=== PATIENT | male | born 1990 | race Caucasian/White ===

== ENCOUNTER 2022-07-15 04:59 | Emergency (ER) | payer OTHER, SELFPAY ==
--- NOTE | 2022-07-15 | ECG_ITS ---
Test Reason : rhythm change Blood Pressure : / mmHG Vent. Rate : 062 BPM Atrial Rate : 062 BPM P-R Int : 184 ms QRS Dur : 114 ms QT Int : 424 ms P-R-T Axes : 024 -24 037 degrees QTc Int : 430 ms Normal sinus rhythm Possible Left atrial enlargement Borderline ECG When compared with ECG of 15-JUL-2022 05:02, Sinus rhythm has replaced Atrial fibrillation Vent. rate has decreased BY 75 BPM QRS duration has increased ST no longer depressed in Anterior leads Referred By: Abel Escalona Electronically Signed By:ANGELLA CALLAHAN MD
--- NOTE | 2022-07-15 05:03 | ECG_ITS ---
Test Reason : PALPATATIONS Blood Pressure : / mmHG Vent. Rate : 137 BPM Atrial Rate : 000 BPM P-R Int : 000 ms QRS Dur : 096 ms QT Int : 284 ms P-R-T Axes : 000 -23 035 degrees QTc Int : 428 ms Atrial fibrillation with rapid ventricular response Nonspecific ST abnormality Abnormal ECG No previous ECGs available Referred By: Generic ED Physician Electronically Signed By:ANGELLA CALLAHAN MD
[2022-07-15 05:04] VITALS: BP 114/73; PULSE 140; RESP 16; O2SAT 97; BMI 40.3
--- NOTE | 2022-07-15 05:10 | ED_ITS ---
HPI - Arrhythmia/Palpitations General Chief Complaint: Arrhythmia/Palpitations Stated Complaint: Afib Time Seen by Provider: 07/15/22 05:09 Source: patient Mode of arrival: ambulatory Limitations: no limitations History of Present Illness HPI narrative: Patient is still on fibrillation had episode in October when has to get cardioversion converted to normal sinus rhythm since then patient been in sinus rhythm patient woke up just prior to arrival at 03:00 with palpitation episode similar to that in October felt dizzy and weak heart rate was 140 beats per minute on arrival patient was in AFib with ventricular rate 137 Related Data Allergies Allergy/AdvReac Type Severity Reaction Status Date / Time amoxicillin Allergy Unknown Verified 07/15/22 05:03 Review of Systems Review of Systems: Yes all other systems are reviewed and are negative [facility] Social History Social History Alcohol intake: never Smoked in Last 30 Days: No Use of substances other than those prescribed or required for medical reasons: No Advance Directives: No Advance Directives Information Provided: Yes Physical Exam Vital Signs: Vital Signs: Last Vital Signs Pulse 140 H 07/15/22 05:04 Resp 16 07/15/22 05:04 BP 114/73 07/15/22 05:04 Pulse Ox 97 07/15/22 05:04 O2 Del Method Room Air 07/15/22 05:04 BMI result Body Mass Index 40.3 Appearance: Alert. Oriented X3. No acute distress obese. ENT: Pharynx normal. Oral Mucosa moist Neck: Normal inspection. Neck supple. CVS: Irregularly irregular tachycardia no murmur rub or gallop. Pulses normal. Respiratory: No respiratory distress. Equal air entry bilateral, no wheezing/rales/rhonchi Abdomen: Soft and nontender. Bowel sounds are present, no mass palpable, Skin: Skin warm and dry. Normal skin color. Normal skin turgor. Extremities: No lower extremity edema. No calf tenderness Neuro: Oriented X 3. No motor deficit. Medications Administered Discontinued Medications Generic Name Dose Route Start Last Admin Trade Name Freq PRN Reason Stop Dose Admin Diltiazem HCl 20 mg 07/15/22 05:27 07/15/22 05:31 Diltiazem Hcl 50 Mg/10 Ml Vial IVPUSH 07/15/22 05:28 20 mg STAT STA Administration Metoprolol Tartrate 5 mg 07/15/22 05:15 07/15/22 05:19 Metoprolol Tartrate 5 Mg/5 Ml Vial IVPUSH 07/15/22 05:16 5 mg ONCE ONE Administration Rivaroxaban 20 mg 07/15/22 06:13 07/15/22 06:26 Rivaroxaban 20 Mg Tablet PO 07/15/22 06:14 20 mg ONCE ONE Administration Medical Decision Making Medical Decision Making [facility] Narrative: Patient with lone atrial fibrillation with fast ventricular rate partially responded to Cardizem 20 mg IVP heart rate still 100-110 patient feeling much comfortable now. Case discussed with Dr. Frost graphic art sales representative advised to give Xarelto 20 mg 1 dose flecainide 150 mg now repeat in 45 minutes if does not wor k. If patient returns normal sinus rhythm he can be seen as outpatient if not cardiology will need to be consulted and he will come to the ER for evaluation and possible cardioversion Patient signed out to Dr. Escalona Lab Data [facility] Lab Attestation statement: I reviewed the patient's lab results. 07/15/22 05:14 07/15/22 05:14 Labs: Lab Results 07/15/22 07/15/22 07/15/22 Range/Units 05:14 05:14 05:14 WBC 9.3 (4.8-10.8) X10*3/uL RBC 4.87 (4.60-5.80) X10*6/uL Hgb 14.8 (14.0-18.0) g/dl Hct 42.1 (42.0-52.0) % MCV 86.4 (80.0-98.0) fL MCH 30.4 (27.0-33.0) pg MCHC 35.2 (31.0-36.0) g/dl RDW 12.5 (11.0-16.0) % Plt Count 278 (160-400) X10*3/uL MPV 9.5 (9.4-12.4) fL Immature Gran % (Auto) 0.2 (0.0-0.4) % Neut % (Auto) 49.9 (45-73) % Lymph % (Auto) 33.8 (20-40) % [place] % (Auto) 8.4 (2-11) % Eos % (Auto) 7.1 H (0-4) % Baso % (Auto) 0.6 (0-2) % Lymph # (Auto) 3.2 (1.2-4.9) X10*3/uL [place] # (Auto) 0.8 (0.1-1.2) X10*3/uL Eos # (Auto) 0.7 H (0.0-0.4) X10*3/uL Baso # (Auto) 0.1 (0.0-0.2) X10*3/uL Abs Immat Gran (auto) 0.02 (0.00-0.03) X10*3/uL Absolute Neuts (auto) 4.7 (2.0-8.3) x10*3/uL Absolute Nucleated RBC 0.000 (0.0-0.012) X10*3/uL Nucleated RBC % (auto) 0.0 (0.0-0.2) /100WBC Sodium 140 (135-145) mmol/L Potassium 4.1 (3.3-5.1) mmol/L Chloride 106 (96-108) mmol/L Carbon Dioxide 26 (22-29) mmol/L Anion Gap 12 (12-20) BUN 15 (9-16) mg/dL Creatinine 0.75 (0.5-1.4) mg/dL Estim Creat Clear Calc 230.1 Estimated GFR > 60 Random Glucose 102 (60-115) mg/dL Calcium 9.6 (8.4-10.2) mg/dL Troponin I High Sens < 2.7 (<3.5-35.0) ng/L Independent Interpretation I performed an independent interpretation of an: EKG Interpretation: Atrial fibrillation with ventricular rate 137 beats per minute no acute ischemic changes Discharge Plan Discharge Clinical Impression: Atrial fibrillation with rapid ventricular response Patient Disposition: Still a Patient
[2022-07-15 05:19] LABS: Basophils Absolute Auto 0.1 X10*3/uL (0.0-0.2); Basophils Percent Auto 0.6 % (0-2); Eosinophils Absolute Auto 0.7 X10*3/uL (0.0-0.4); Eosinophils Percent Auto 7.1 % (0-4); Hematocrit 42.1 % (42.0-52.0); Hemoglobin 14.8 g/dl (14.0-18.0); Imm Gran Abs Auto 0.02 X10*3/uL (0.00-0.03); Imm Gran Pct Auto 0.2 % (0.0-0.4); Lymphocytes Absolute Auto 3.2 X10*3/uL (1.2-4.9); Lymphocytes Percent Auto 33.8 % (20-40); MANUAL DIFF FLAG NO; Mean Corpuscular HGB Conc 35.2 g/dl (31.0-36.0); Mean Corpuscular Hemoglobin 30.4 pg (27.0-33.0); Mean Corpuscular Volume 86.4 fL (80.0-98.0); Mean Platelet Volume 9.5 fL (9.4-12.4); Monocytes Absolute Auto 0.8 X10*3/uL (0.1-1.2); Monocytes Percent Auto 8.4 % (2-11); Neutrophils Absolute Auto 4.7 x10*3/uL (2.0-8.3); Neutrophils Percent Auto 49.9 % (45-73); Platelet Count 278 X10*3/uL (160-400); Red Blood Count 4.87 X10*6/uL (4.60-5.80); Red Cell Distribution Width 12.5 % (11.0-16.0); White Blood Count 9.3 X10*3/uL (4.8-10.8)
[2022-07-15] MEDS: Metoprolol Tartrate 5 MG/5 ML VIAL IVPUSH (05:19)
[2022-07-15 05:31] LABS: Anion Gap 12 (12-20); Blood Urea Nitrogen 15 mg/dL (9-16); Calcium 9.6 mg/dL (8.4-10.2); Carbon Dioxide 26 mmol/L (22-29); Chloride 106 mmol/L (96-108); Creatinine Clr Calc Pharmacy 230.1; Estimated Glomerular Filt Rate > 60; Glucose Random 102 mg/dL (60-115); Potassium 4.1 mmol/L (3.3-5.1); Sodium 140 mmol/L (135-145)
[2022-07-15] MEDS: dilTIAZem HCL 50 MG/10 ML VIAL 20 MG IVPUSH (05:31)
[2022-07-15 05:42] LABS: Troponin-I High Sensitivity < 2.7 ng/L (<3.5-35.0)
[2022-07-15] MEDS: Rivaroxaban 20 MG TABLET PO (06:26)
[2022-07-15] MEDS: Flecainide Acetate 50 MG TABLET 150 MG PO ×2 (06:34→07:41)
[2022-07-15 07:10] VITALS: BP 108/72; PULSE 109; RESP 16; O2SAT 96
[2022-07-15 07:42] VITALS: PULSE 102; RESP 14; O2SAT 95
--- NOTE | 2022-07-15 09:10 | PC.NURSE ---
Pt was in Afib, was going to be cardioverted however prior to procedure pt converted back to normal sinus, EKG obtained to capture.
[2022-07-15 10:27] VITALS: BP 103/65; PULSE 61; RESP 12; O2SAT 98
--- NOTE | 2022-07-15 10:32 | PM.CNCAR ---
History of Present Illness History of Present Illness Date of Service: 07/15/22 Requesting physician: Abel Escalona Consult reason: atrial fibrillation Chief complaint: Afib Narrative: I was consulted to see Tyrese in cardiology consultation today for recurrent atrial fibrillation. He is a 32-year-old male with past medical history of obesity, last October had developed atrial fibrillation after shower. Had ended up going to [facility] with no response to medical therapy and subsequently had undergone synchronized cardioversion. Had seen a oil inspector in [place]. Had an echocardiogram as per him and was told that his structure of the heart was normal. He was told to lose weight and has been losing weight and says he has lost about 40 lb since last event. Was also advise a sleep study which she has not undergone. Was started on metoprolol therapy appropriately. Was doing well any usual state of health last night when he went to bed. Woke up around 03:00 not feeling well and then started noticing fluttering in his chest and increased urination. He then did he has EKG with [place] an EKG was suggestive of possible atrial fibrillation. He then took a cold shower to get rid of his atrial fibrillation more persistent not feeling well. Had increased urination. Came to the Emergency was noted to be in rapid atrial fibrillation. He was subsequently given rate control without conversion to sinus rhythm but his rate got controlled. He persists with symptoms. He was then subsequently given 2 dose of flecainide 150 mg p.o. 45 minutes apart. He was then plan for synchronized cardioversion, however he then converted. He feels well at this point time. Remains in sinus rhythm. He has no history of hypertension, diabetes, stroke, congestive heart failure. His father was 60 years old is undergoing atrial fibrillation ablation. He has atrial fibrillation started age of 55. he has some daytime somnolence but he does not sleep well. Does feel fatigue sometimes when he wakes up in the morning. Review of Systems Constitutional: Constitutional: Reports lethargy Cardiovascular: Cardiovascular: Denies chest pain, Denies leg edema, Denies lightheadedness, Denies Loss of Consciousness, Reports palpitations and Denies dyspnea Respiratory: Respiratory: Reports no additional respiratory complaints and Denies dyspnea Gastrointestinal: Gastrointestinal: Reports no additional gastrointestinal complaints Genitourinary: Genitourinary: Reports no additional male genitourinary complaints Integumentary/Breasts: Skin/Breast: Reports system reviewed and no additional complaints, except as docu Neurologic: Reports system reviewed and no additional complaints, except as documented Psychiatric: Psychiatric: Reports no additional psychiatric complaints Endocrine: Endocrine: Reports no additional endocrine complaints and Reports palpitations PMFSH Past Medical History Medical History (Updated 07/15/22 @ 10:37 by Al Frost MD) Atrial fibrillation with rapid ventricular response Social History Social History Alcohol intake: never Smoked in Last 30 Days: No Use of substances other than those prescribed or required for medical reasons: No Advance Directives: No Advance Directives Information Provided: Yes Meds Allergies Allergy/AdvReac Type Severity Reaction Status Date / Time amoxicillin Allergy Unknown Verified 07/15/22 05:03 Physical Exam Vital Signs: Vital Signs: Last Vital Signs Pulse 61 07/15/22 10:27 Resp 12 07/15/22 10:27 BP 103/65 07/15/22 10:27 Pulse Ox 98 07/15/22 10:27 O2 Del Method Room Air 07/15/22 10:27 BMI result Body Mass Index 40.3 Const: General: cooperative, comfortable, no acute distress, alert and awake Nutritional Appearance: obese Orientation/consciousness: patient oriented x3 Limitations: no limitations HEENT: Head: Yes normocephalic and Yes atraumatic Neck: Neck: Yes trachea midline, Yes supple and Yes no JVD Resp: Effort & Inspection: normal respiratory effort Auscultation: clear to auscultation bilaterally Cardio: Jugular venous distension: no JVD Palpation: normal PMI Rate: regular rate Rhythm: regular rhythm Heart sounds: S1 normal heart sound present, S2 normal heart sound present, no click, no gallops, no murmurs and no rubs GI: Auscultation: normal bowel sounds Skin: General skin exam: no rashes or lesions noted Neuro: General: patient oriented x3 and no focal motor deficits Extrem: General: Yes no clubbing, cyanosis or edema Psych: Appearance: grossly normal Objective Labs and Meds 07/15/22 05:14 07/15/22 05:14 Lab results: Laboratory Results - last 24 hr 07/15/22 07/15/22 07/15/22 05:14 05:14 05:14 WBC 9.3 RBC 4.87 Hgb 14.8 Hct 42.1 MCV 86.4 MCH 30.4 MCHC 35.2 RDW 12.5 Plt Count 278 MPV 9.5 Immature Gran % (Auto) 0.2 Neut % (Auto) 49.9 Lymph % (Auto) 33.8 [place] % (Auto) 8.4 Eos % (Auto) 7.1 H Baso % (Auto) 0.6 Lymph # (Auto) 3.2 [place] # (Auto) 0.8 Eos # (Auto) 0.7 H Baso # (Auto) 0.1 Abs Immat Gran (auto) 0.02 Absolute Neuts (auto) 4.7 Absolute Nucleated RBC 0.000 Nucleated RBC % (auto) 0.0 Sodium 140 Potassium 4.1 Chloride 106 Carbon Dioxide 26 Anion Gap 12 BUN 15 Creatinine 0.75 Estim Creat Clear Calc 230.1 Estimated GFR > 60 Random Glucose 102 Calcium 9.6 Magnesium 2.0 Troponin I High Sens < 2.7 EKG 1. Showed atrial fibrillation rapid ventricular response with nonspecific ST T wave changes EKG 2. Shows normal sinus rhythm with possible left atrial enlargement with no QTC prolongation Assessment and Plan (1) Paroxysmal atrial fibrillation: Status: Acute highly symptomatic atrial fibrillation requiring synchronized cardioversion October and now chemical cardioversion with flecainide leading to hospitalization with symptoms of palpitation not feeling well. Most likely risk factors of possible underlying sleep apnea and obesity. He has been trying aggressively to lose weight. Advised to continue to pursue the same. However I think he will require therapy with antiarrhythmic to prevent recurrent hospitalization. Will start on flecainide 100 mg b.i.d. with additional 100 mg as a pill in the pocket. Instructions were provided to him. He requires continued use of metoprolol with it. He has no risk factors and therefore does not require any oral anticoagulation therapy in the long run. Advised to follow-up with his oil inspector. If he continues to have recurrent episodes may need to consider ablation therapy. Avoidance of stimulants such as alcohol and caffeine was discussed. He understands agrees. Recommend to follow-up with sleep study as soon as possible. Patient can be discharged home today. Follow-up with his oil inspector in 1-2 weeks. Time Spent With Patient Time: Total time managing care of this patient today ____ minutes. Procedures Date of Service Date of Service: 07/15/22
== END 2022-07-15 11:05 | disposition home or self-care (01) ==
PROVIDERS: Emergency Provider Internal Medicine; PCP Family Medicine
DX: I48.20 Chronic atrial fibrillation, unspecified (principal); I48.0 Paroxysmal atrial fibrillation; R00.2 Palpitations; R00.0 Tachycardia, unspecified
CPT/HCPCS: 36415; 80048; 83735; 84484; 85025; 93005; 96374; 96375; 99284; 99285

== ENCOUNTER 2022-09-18 07:55 | Emergency (ER) | payer OTHER, SELFPAY ==
--- NOTE | ~2022-09-18 | XR_ITS ---
EXAMINATION: XR CHEST CLINICAL INFORMATION: Shortness of breath COMPARISON: None available. TECHNIQUE: 2 views of the chest were obtained. FINDINGS: Slight interstitial prominence. No pneumothorax. Trachea is midline. Cardiac mediastinal silhouette is not enlarged. No large pleural effusion. Osseous structures are intact. Soft tissues are unremarkable. XR/XR chest 2V IMPRESSION: Slight interstitial prominence.
--- NOTE | 2022-09-18 07:58 | ECG_ITS ---
Test Reason : AFIB Blood Pressure : / mmHG Vent. Rate : 111 BPM Atrial Rate : 000 BPM P-R Int : 000 ms QRS Dur : 116 ms QT Int : 368 ms P-R-T Axes : 000 -54 031 degrees QTc Int : 500 ms Atrial fibrillation with rapid ventricular response Left anterior fascicular block Nonspecific ST abnormality Abnormal ECG When compared with ECG of 15-JUL-2022 09:01, Atrial fibrillation has replaced Sinus rhythm Vent. rate has increased BY 49 BPM Referred By: Generic ED Physician Electronically Signed By:PRECIOUS COATES
[2022-09-18 08:11] VITALS: BP 112/70; PULSE 108; RESP 16; TEMP 36.9; O2SAT 96; BMI 41.5
[2022-09-18 08:25] VITALS: PULSE 104
[2022-09-18 08:44] LABS: MANUAL DIFF FLAG NO
--- NOTE | 2022-09-18 08:47 | PC.NURSE ---
pt axox4, vss, respirations even and unlabored, afib on monitor rate ranging 95-110 bpm, skin wpd. pt states he woke up this am feeling as if he was in afib, pocket ecg monitor stated possible afib at 135 bpm. pt states he took 50mg flecainide at 0630; no change in sx. pt denies cp/dizziness/recent fever/chills/sweats. pt reports he feels some sob at times; lung sounds cta. iv established, labs drawn. awaiting further orders. partner at bedside. all needs met at this time; call kidd within reach.
[2022-09-18 08:49] LABS: Basophils Absolute Auto 0.1 X10*3/uL (0.0-0.2); Basophils Percent Auto 0.7 % (0-2); Eosinophils Absolute Auto 0.7 X10*3/uL (0.0-0.4); Eosinophils Percent Auto 9.9 % (0-4); Hematocrit 43.7 % (42.0-52.0); Hemoglobin 15.2 g/dl (14.0-18.0); Imm Gran Abs Auto 0.02 X10*3/uL (0.00-0.03); Imm Gran Pct Auto 0.3 % (0.0-0.4); Lymphocytes Absolute Auto 2.3 X10*3/uL (1.2-4.9); Lymphocytes Percent Auto 33.5 % (20-40); Mean Corpuscular HGB Conc 34.8 g/dl (31.0-36.0); Mean Corpuscular Hemoglobin 30.5 pg (27.0-33.0); Mean Corpuscular Volume 87.8 fL (80.0-98.0); Mean Platelet Volume 10.2 fL (9.4-12.4); Monocytes Absolute Auto 0.6 X10*3/uL (0.1-1.2); Monocytes Percent Auto 8.1 % (2-11); Neutrophils Absolute Auto 3.3 x10*3/uL (2.0-8.3); Neutrophils Percent Auto 47.5 % (45-73); Platelet Count 284 X10*3/uL (160-400); Red Blood Count 4.98 X10*6/uL (4.60-5.80); Red Cell Distribution Width 12.6 % (11.0-16.0); White Blood Count 6.9 X10*3/uL (4.8-10.8)
--- NOTE | 2022-09-18 08:50 | ED_ITS ---
HPI - Arrhythmia/Palpitations General Chief Complaint: Arrhythmia/Palpitations Stated Complaint: afib Time Seen by Provider: 09/18/22 07:59 Source: patient, family and EMS Mode of arrival: EMS History of Present Illness HPI narrative: 32-year-old male with known paroxysmal atrial fibrillation currently on twice daily flecainide and evenings time dose of Lopressor and pending evaluation after sleep study, has seen EP marketing summer intern last week, currently under the care of a marketing summer intern at [facility]. Patient woke up this morning feeling palpitations and shortness of breath and has a pocket EKG which noted he was in atrial fibrillation. He is not currently on anticoagulation due to prior bleeding condition as a young child. Related Data Previous Rx's Medication Instructions Recorded flecainide 100 mg tablet 100 mg PO Q12H #60 tabs 07/15/22 Allergies Allergy/AdvReac Type Severity Reaction Status Date / Time amoxicillin Allergy Unknown Verified 07/15/22 05:03 Review of Systems Review of Systems: Pertinent positives and negatives as stated in HPI PMFSH Past Medical History Source: nursing notes reviewed Medical History Atrial fibrillation with rapid ventricular response Social History Social History Alcohol intake: never Smoked in Last 30 Days: No Use of substances other than those prescribed or required for medical reasons: No Advance Directives: No Advance Directives Information Provided: No Physical Exam Vital Signs: Vital Signs: Last Vital Signs Temp 98.4 F 09/18/22 08:11 Pulse 67 09/18/22 09:15 Resp 16 09/18/22 09:15 BP 122/77 09/18/22 09:15 Pulse Ox 95 09/18/22 09:15 O2 Del Method Room Air 09/18/22 09:15 BMI result Body Mass Index 41.5 VITAL SIGNS: Reviewed. GENERAL: Well developed, well nourished, in no acute distress. HEAD: Normocephalic/atraumatic EYES: PERRLA, EOMI EARS: Ext canals without abnormality NOSE: Nares patent bilateral OROPHARYNX: no oral lesions noted, posterior pharynx clear NECK: Supple, no adenopathy LUNGS: Normal breath sounds. No adventitious sounds or accessory muscle use. SpO2<96> CARDIOVASCULAR: IRR/IRR without noted murmurs ABDOMEN: Soft, non-tender, non-distended with bowel sounds. MUSCULOSKELETAL: No tenderness, deformities, or effusions noted on gross inspection. EXTREMITIES: No cyanosis, clubbing or edema. SKIN: Inspection of the skin reveals no rashes NEUROLOGIC: Alert and oriented x 4. Strength and sensation to light touch were grossly intact x 4. Medical Decision Making Medical Decision Making [facility] Narrative: 0853: 32-year-old male with history and clinical presentation consistent with atrial fibrillation/RVR, DDX: Infection, anemia, electrolyte abnormalities. INTERVENTION: IV 0925: Patient is noted to have converted into normal sinus rhythm and will obtain EKG. I reviewed all investigate and there is no evidence acute infection or knee me a as hematologic indices are negative for leukocytosis or left shift and no anemia and no thrombocytopenia. Coagulation studies are grossly within normal limits. Chemistry studies without electrolyte or liver enzyme abnormalities, magnesium is within normal limits and there is no NITO. Patient has converted into normal sinus rhythm without need for additional medications at this time. Chest x-ray demonstrates mild interstitial prominence but otherwise no infiltrate and otherwise my interpretation is in agreement with radiology's impression. In my interpretation patient has had a paroxysmal episode of his atrial fibrillation and speculate that this may have been related to suspicion for obstructive sleep apnea. He is otherwise hemodynamically stable and will be instructed follow-up with his marketing summer intern today. I gave patient 1 time dose of 20 mg of Lasix for noted interstitial prominence which is likely secondary to his atrial fibrillation with RVR. I do not think at this time that he needs to get a Lasix prescription. Differential Diagnosis Differential Diagnoses: The differential diagnosis associated with the presentation includes Please see the discussion above Admission/Observation Consideration of admission/observation: Escalation of care including admission/observation considered Please see the discussion above Lab Data [facility] Lab Attestation statement: I reviewed the patient's lab results. Please see the discussion above 09/18/22 08:28 08 08:28 Labs: Lab Results 09/18/22 09/18/22 09/18/22 Range/Units 08:28 08:28 08:28 WBC 6.9 (4.8-10.8) X10*3/uL RBC 4.98 (4.60-5.80) X10*6/uL Hgb 15.2 (14.0-18.0) g/dl Hct 43.7 (42.0-52.0) % MCV 87.8 (80.0-98.0) fL MCH 30.5 (27.0-33.0) pg MCHC 34.8 (31.0-36.0) g/dl RDW 12.6 (11.0-16.0) % Plt Count 284 (160-400) X10*3/uL MPV 10.2 (9.4-12.4) fL Immature Gran % (Auto) 0.3 (0.0-0.4) % Neut % (Auto) 47.5 (45-73) % Lymph % (Auto) 33.5 (20-40) % [place] % (Auto) 8.1 (2-11) % Eos % (Auto) 9.9 H (0-4) % Baso % (Auto) 0.7 (0-2) % Lymph # (Auto) 2.3 (1.2-4.9) X10*3/uL [place] # (Auto) 0.6 (0.1-1.2) X10*3/uL Eos # (Auto) 0.7 H (0.0-0.4) X10*3/uL Baso # (Auto) 0.1 (0.0-0.2) X10*3/uL Abs Immat Gran (auto) 0.02 (0.00-0.03) X10*3/uL Absolute Neuts (auto) 3.3 (2.0-8.3) x10*3/uL Absolute Nucleated RBC 0.000 (0.0-0.012) X10*3/uL Nucleated RBC % (auto) 0.0 (0.0-0.2) /100WBC PT 12.7 (11.1-13.3) SEC INR 1.0 (0.9-1.1) Sodium 143 (135-145) mmol/L Potassium 4.0 (3.3-5.1) mmol/L Chloride 109 H (96-108) mmol/L Carbon Dioxide 23 (22-29) mmol/L Anion Gap 15 (12-20) BUN 10 (9-16) mg/dL Creatinine 0.71 (0.5-1.4) mg/dL Estim Creat Clear Calc 247.1 Estimated GFR > 60 Random Glucose 104 (60-115) mg/dL Calcium 9.2 (8.4-10.2) mg/dL Magnesium 2.2 (1.6-2.6) mg/dL Total Bilirubin 0.7 (0.0-1.0) mg/dL AST 20 (5-37) U/L ALT 20 (0-40) U/L Alkaline Phosphatase 69 (39-117) U/L Total Protein 7.1 (6.5-8.0) g/dL Albumin 4.0 (3.5-5.0) g/dL Independent Interpretation I performed an independent interpretation of an: EKG Interpretation: Atrial fibrillation, HR-111, no STEMI, QRS-116, QTC -500 0934: Normal sinus rhythm, HR-65, no STEMI but there is a noted in traventricular conduction delay with a ID -192, QRS remains prolonged 120 and QTC is now 459. Radiology Impression Radiologist Impression: No pneumonia, otherwise my interpretation is in agreement with radiology's impression. External Record Review External record reviewed: Outpatient record and Prior outpatient labs Chronic Conditions Paroxysmal atrial fibrillation Critical Care Time Critical Care Time Critical Care Time: Yes Total Critical Care Time: 30 Attestation: I personally attest to this time spent taking care of the patient. Discharge Plan Discharge Clinical Impression: Paroxysmal atrial fibrillation with RVR Patient Disposition: Home, Self-Care Instructions: [place] (Atrial Fibrillation) (ED) Additional Instructions: 1. Resume all home medications. 2. Recommend that you for call the office of your marketing summer intern discuss the fact that you were seen here this morning, your workup today is negative for exacerbation of your atrial fibrillation by infection, anemia, electrolyte abnormalities. Return to the ER for any worsening symptoms. Prescriptions: No Action flecainide 100 mg tablet 100 mg PO Q12H Qty: 60 0RF Rx Instructions: may take an extra flecainide if you go into spontaneous atrial fibrillation Referrals: Willie Grossman DO [Primary Care Provider] -
[2022-09-18 08:58] LABS: Prothrombin Time 12.7 SEC (11.1-13.3)
[2022-09-18 09:12] LABS: Alanine Aminotransferase 20 U/L (0-40); Alkaline Phosphatase 69 U/L (39-117); Anion Gap 15 (12-20); Aspartate Amino Transferase 20 U/L (5-37); Bilirubin Total 0.7 mg/dL (0.0-1.0); Blood Urea Nitrogen 10 mg/dL (9-16); Calcium 9.2 mg/dL (8.4-10.2); Carbon Dioxide 23 mmol/L (22-29); Chloride 109 mmol/L (96-108); Creatinine Clr Calc Pharmacy 247.1; Estimated Glomerular Filt Rate > 60; Glucose Random 104 mg/dL (60-115); Sodium 143 mmol/L (135-145); Total Protein 7.1 g/dL (6.5-8.0)
[2022-09-18 09:15] VITALS: BP 122/77; PULSE 67; RESP 16; O2SAT 95
[2022-09-18 09:21] LABS: Magnesium 2.2 mg/dL (1.6-2.6)
--- NOTE | 2022-09-18 09:23 | ECG_ITS ---
Test Reason : repeat EKG Blood Pressure : / mmHG Vent. Rate : 065 BPM Atrial Rate : 065 BPM P-R Int : 192 ms QRS Dur : 120 ms QT Int : 442 ms P-R-T Axes : 019 -22 033 degrees QTc Int : 459 ms Normal sinus rhythm Non-specific intra-ventricular conduction delay Borderline ECG When compared with ECG of 18-SEP-2022 08:01, Sinus rhythm has replaced Atrial fibrillation Vent. rate has decreased BY 46 BPM Referred By: Kathia Vargas Electronically Signed By:PRECIOUS COATES
[2022-09-18] MEDS: Furosemide 20 MG TABLET PO (11:20)
[2022-09-18 11:23] VITALS: BP 107/69; PULSE 64; RESP 16; O2SAT 97
== END 2022-09-18 11:26 | disposition home or self-care (01) ==
PROVIDERS: Emergency Provider Student in an Organized Health Care Education/Training Program; PCP Family Medicine
DX: I49.9 Cardiac arrhythmia, unspecified (principal); I48.20 Chronic atrial fibrillation, unspecified; R06.02 Shortness of breath; R00.2 Palpitations; Z79.899 Other long term (current) drug therapy
CPT/HCPCS: 36415; 71046; 80053; 83735; 85025; 85610; 93005; 99283; 99284; 99285

== ENCOUNTER → 2022-09-18 07:58 | Outpatient (BNV) | payer OTHER, SELFPAY | PROVIDERS: Emergency Provider Student in an Organized Health Care Education/Training Program; PCP Family Medicine; Visit Provider Internal Medicine | DX: I48.91 Unspecified atrial fibrillation (principal) | CPT/HCPCS: 93010 ==